=== PATIENT | male | born 1990 | race Caucasian/White ===

== ENCOUNTER 2017-08-11 23:46 | Emergency (ER) | payer MEDICAID ==
[2017-08-11 23:54] VITALS: O2SAT 94
--- NOTE | 2017-08-12 00:09 | EDPHY ---
H & P Stated Complaint: seen at walk in clinic for fever, nausea, not improved with meds HPI/ROS: HPI CHIEF COMPLAINT: Fever, nausea HISTORY OF PRESENT ILLNESS: This patient very pleasant 27-year-old female to male, presents emergency room with fever generalized fatigue, sore throat, in skin hypersensitivity. Patient reports to me that he was seen at he initially got sick on Thursday. Gilbert rather ill with generalized weakness. On Thursday developed a fever. T-max 103degrees. He went to urgent care thinking that he had strep throat however never had a strep test done. He did provide a urine sample was diagnosed with a urinary tract infection. He is currently on Bactrim. Does tell me the dysuria is gotten better. He now presents emergency room as he has had persistent fever T-max 101degrees at home. Skin sensitivity and nausea. He has not any vomiting. Denies diarrhea. He states he has decreased appetite. No rash. Denies headache or neck pain or stiff neck. Still complains of sore throat. 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 Taking testosterone. Past Surgical History: Chest augmentation with breast reduction Social History: Denies daily use drugs alcohol tobacco products. [employer]. Family History: Noncontributory ROS REVIEW OF SYSTEMS: A comprehensive 10 point review of systems is otherwise negative aside from elements mentioned in the history of present illness. Exam Constitutional appears well nontoxic, triage nursing summary reviewed, vital signs reviewed, awake/alert. Eyes normal conjunctivae and sclera, EOMI, PERRLA. HENT posterior pharynx erythematous is no significant exudate, moist mucus membranes, no epistaxis, neck supple/ no meningismus, no raccoon eyes. Respiratory clear to auscultation bilaterally, normal breath sounds, no respiratory distress, no wheezing. Cardiovascular rate normal, regular rhythm, no murmur, no edema, distal pulses normal. Gastrointestinal soft, non-tender, no rebound, no guarding, normal bowel sounds, no distension, no pulsatile mass. Genitourinary no CVA tenderness. Musculoskeletal no midline vertebral tenderness, full range of motion, no calf swelling, no tenderness of extremities, no meningismus, good pulses, neurovascularly intact. Skin pink, warm, & dry, no rash, skin atraumatic. Neurologic awake, alert and oriented x 3, AAOx3, moves all 4 extremities equally, motor intact, sensory intact, CN II-XII intact, normal cerebellar, normal vision, normal speech. Psychiatric normal mood/affect. Heme/Lymph/Immune no lymphadenopathy. Differential Diagnosis: Includes but is not limited to in a particular order sepsis, urinary tract infection, pyelonephritis, bacteremia, dehydration, electrolyte disturbance, mono, strep pharyngitis, influenza. Medical Decision Making: Plan for this patient IV establishment IV fluid bolus , IV Phenergan for nausea, ibuprofen for pain control and fever reduction. Check blood work, blood cultures, lactic acid, rapid strep, influenza urinalysis. Re-evaluation: 235AM: I did re-evaluate this patient patient is resting comfortably no acute distress. He has not any vomiting here. He is afebrile. His workup for acute febrile illness is unremarkable specifically strep negative mono is negative. Influenza negative. Blood work is reassuring. Feels better after 2 L of fluid and ibuprofen. He would like to go home. He is on Bactrim for recent UTI. However he states that he prefers a different medication I will switch him to Keflex. He can stop the Bactrim. Patient additionally understands to return to the ER if he develops worsening symptoms high fever vomiting or not feeling well. Source: Patient - Personal History Current Tetanus/Diphtheria Vaccine: Unsure - Medical/Surgical History Hx Asthma: Yes Hx Chronic Respiratory Disease: No Hx Diabetes: No Hx Cardiac Disease: No Hx Renal Disease: No Hx Cirrhosis: No Hx Alcoholism: No Hx HIV/AIDS: No Hx Splenectomy or Spleen Trauma: No Other PMH: PSHx: trans - double mastectomy, total hysterectomy, SLAP repair R shoulder. PMHx: ulcerative colitis - Social History Smoking Status: Never smoked Constitutional: Initial Vital Signs Temperature (C) 37.9 C 08/11/17 23:50 Heart Rate 76 08/11/17 23:50 Respiratory Rate 16 08/11/17 23:50 Blood Pressure 119/90 H 08/11/17 23:50 O2 Sat (%) 94 08/11/17 23:50 O2 Delivery Mode Room Air Allergies/Adverse Reactions: No Known Allergies Allergy (Unverified 08/11/17 23:50) Home Medications: Medication Instructions Recorded Bactrim DS 08/11/17 Zofran 08/11/17 Cephalexin [Keflex] 500 mg PO Q6H #28 cap 08/12/17 Medical Decision Making - Data Points Laboratory Results: Laboratory Results 08/12/17 00:25 08/12/17 00:25 08/12/17 08/12/17 08/12/17 Unknown 01:14 01:11 WBC RBC Hgb Hct MCV MCH MCHC RDW Plt Count MPV Neut % (Auto) Lymph % (Auto) [place] % (Auto) Eos % (Auto) Baso % (Auto) Nucleat RBC Rel Count Absolute Neuts (auto) Absolute Lymphs (auto) Absolute Monos (auto) Absolute Eos (auto) Absolute Basos (auto) Absolute Nucleated RBC Immature Gran % Immature Gran # VBG Lactic Acid Sodium Potassium Chloride Carbon Dioxide Anion Gap BUN Creatinine Estimated GFR Glucose Calcium Total Bilirubin Conjugated Bilirubin Unconjugated Bilirubin AST ALT Alkaline Phosphatase Total Protein Albumin Lipase Urine Color YELLOW Urine Appearance CLEAR Urine pH 6.0 (5.0-7.5) Ur Specific Staples 1.012 (1.002-1.030) Urine Protein NEGATIVE (NEGATIVE) Urine Ketones NEGATIVE (NEGATIVE) Urine Blood NEGATIVE (NEGATIVE) Urine Nitrate NEGATIVE (NEGATIVE) Urine Bilirubin NEGATIVE (NEGATIVE) Urine Urobilinogen 2.0 EU H EU (0.2-1.0) Ur Leukocyte Esterase NEGATIVE (NEGATIVE) Urine Glucose NEGATIVE (NEGATIVE) Monoscreen Influenza A,B Rapid NEGATIVE FOR FLU (NEGATIVE) Group A Strep Screen Group A Strep DNA Pending 08/12/17 08/12/17 08/12/17 00:25 00:25 00:25 WBC RBC Hgb Hct MCV MCH MCHC RDW Plt Count MPV Neut % (Auto) Lymph % (Auto) [place] % (Auto) Eos % (Auto) Baso % (Auto) Nucleat RBC Rel Count Absolute Neuts (auto) Absolute Lymphs (auto) Absolute Monos (auto) Absolute Eos (auto) Absolute Basos (auto) Absolute Nucleated RBC Immature Gran % Immature Gran # VBG Lactic Acid Sodium 138 mEq/L mEq/L (134-144) Potassium 4.0 mEq/L mEq/L (3.5-5.2) Chloride 99 mEq/L mEq/L (97-110) Carbon Dioxide 25 mEq/l mEq/l (22-31) Anion Gap 14 mEq/L mEq/L (8-16) BUN 10 mg/dL mg/dL (7-23) Creatinine 1.0 mg/dL mg/dL (0.7-1.3) Estimated GFR > 60 Glucose 86 mg/dL mg/dL (70-100) Calcium 8.9 mg/dL mg/dL (8.5-10.4) Total Bilirubin 0.7 mg/dL mg/dL (0.1-1.4) Conjugated Bilirubin 0.4 mg/dL mg/dL (0.0-0.5) Unconjugated Bilirubin 0.3 mg/dL mg/dL (0.0-1.1) AST 38 IU/L IU/L (17-59) ALT 47 IU/L IU/L (21-72) Alkaline Phosphatase 50 IU/L IU/L (38-126) Total Protein 7.6 g/dL g/dL (6.3-8.2) Albumin 4.4 g/dL g/dL (3.5-5.0) Lipase 163 IU/L IU/L (23-300) Urine Color Urine Appearance Urine pH Ur Specific Staples Urine Protein Urine Ketones Urine Blood Urine Nitrate Urine Bilirubin Urine Urobilinogen Ur Leukocyte Esterase Urine Glucose Monoscreen NEGATIVE (NEGATIVE) Influenza A,B Rapid Group A Strep Screen NEGATIVE (NEGATIVE) Group A Strep DNA 08/12/17 08/12/17 00:25 00:25 WBC 6.47 10^3/uL 10^3/uL (3.80-9.50) RBC 5.57 10^6/uL 10^6/uL (4.40-6.38) Hgb 16.9 g/dL g/dL (13.7-17.5) Hct 48.8 % % (40.0-51.0) MCV 87.6 fL fL (81.5-99.8) MCH 30.3 pg pg (27.9-34.1) MCHC 34.6 g/dL g/dL (32.4-36.7) RDW 11.8 % % (11.5-15.2) Plt Count 172 10^3/uL 10^3/uL (150-400) MPV 9.8 fL fL (8.7-11.7) Neut % (Auto) 72.3 % % (39.3-74.2) Lymph % (Auto) 15.0 % % (15.0-45.0) [place] % (Auto) 11.7 % % (4.5-13.0) Eos % (Auto) 0.2 % L % (0.6-7.6) Baso % (Auto) 0.3 % % (0.3-1.7) Nucleat RBC Rel Count 0.0 % % (0.0-0.2) Absolute Neuts (auto) 4.68 10^3/uL 10^3/uL (1.70-6.50) Absolute Lymphs (auto) 0.97 10^3/uL L 10^3/uL (1.00-3.00) Absolute Monos (auto) 0.76 10^3/uL 10^3/uL (0.30-0.80) Absolute Eos (auto) 0.01 10^3/uL L 10^3/uL (0.03-0.40) Absolute Basos (auto) 0.02 10^3/uL 10^3/uL (0.02-0.10) Absolute Nucleated RBC 0.00 10^3/uL 10^3/uL (0-0.01) Immature Gran % 0.5 % % (0.0-1.1) Immature Gran # 0.03 10^3/uL 10^3/uL (0.00-0.10) VBG Lactic Acid 0.9 mmol/L mmol/L (0.7-2.1) Sodium Potassium Chloride Carbon Dioxide Anion Gap BUN Creatinine Estimated GFR Glucose Calcium Total Bilirubin Conjugated Bilirubin Unconjugated Bilirubin AST ALT Alkaline Phosphatase Total Protein Albumin Lipase Urine Color Urine Appearance Urine pH Ur Specific Staples Urine Protein Urine Ketones Urine Blood Urine Nitrate Urine Bilirubin Urine Urobilinogen Ur Leukocyte Esterase Urine Glucose Monoscreen Influenza A,B Rapid Group A Strep Screen Group A Strep DNA Medications Given: Discontinued Medications Sodium Chloride (Ns) 1,000 mls @ 0 mls/hr IV EDNOW ONE; Wide Open PRN Reason: Protocol Stop: 08/12/17 00:18 Last Admin: 08/12/17 00:33 Dose: 1,000 mls Sodium Chloride (Ns) 1,000 mls @ 0 mls/hr IV ONCE ONE PRN Reason: Wide Open Stop: 08/12/17 00:20 Last Admin: 08/12/17 00:36 Dose: 1,000 mls Sodium Chloride (Ns) 1,000 mls @ 0 mls/hr IV ONCE ONE PRN Reason: Wide Open Stop: 08/12/17 01:55 Last Admin: 08/12/17 01:59 Dose: 1,000 mls Ibuprofen (Motrin) 800 mg PO EDNOW ONE Stop: 08/12/17 00:23 Last Admin: 08/12/17 00:36 Dose: 800 mg Promethazine HCl (Phenergan) 6.25 mg IVP ONCE ONE Stop: 08/12/17 00:20 Last Admin: 08/12/17 00:36 Dose: 6.25 mg Departure - Departure Disposition: Home, Routine, Self-Care Clinical Impression: Viral syndrome Fever Qualifiers: Fever type: due to other condition Qualified Code(s): R50.81 - Fever presenting with conditions classified elsewhere Condition: Good Instructions: Fever in Adults (ED), Viral Syndrome (ED) Additional Instructions: 1.Drink lots of fluids stay well-hydrated. 2. Return to the emergency room if develops worsening symptoms questions concerns. 3. I would recommend alternating Tylenol Motrin every 4-6 hours. Referrals: SONU BERNARD [Primary Care Provider] - As per Instructions Prescriptions: Cephalexin [Keflex] 500 mg PO Q6H #28 cap
[2017-08-12] MEDS ORDERED: NS 1,000 ML IV ONE ×3 (00:17→01:54)
[2017-08-12] MEDS ORDERED: PROMETHAZINE HCL 25 MG/ML INJ IVP ONE (00:19)
[2017-08-12] MEDS ORDERED: IBUPROFEN 200 MG TAB PO ONE (00:22)
[2017-08-12 00:40] LABS: % IMMATURE GRANULYOCYTES 0.5 % (0.0-1.1); ABSOLUTE IMMATURE GRANULOCYTES 0.03 10^3/uL (0.00-0.10); ADD DIFF? NO; ADD MORPH? NO; ADD SCAN? NO; ATYPICAL LYMPHOCYTE FLAG 10 (0-99); FRAGMENT RBC FLAG 0 (0-99); HEMATOCRIT 48.8 % (40.0-51.0); HEMOGLOBIN 16.9 g/dL (13.7-17.5); LEFT SHIFT FLG 0 (0-99); LIPEMIA HEMOLYSIS FLAG 90 (0-99); MEAN CELL HEMOGLOBIN 30.3 pg (27.9-34.1); MEAN CELL HEMOGLOBIN CONCENTR. 34.6 g/dL (32.4-36.7); MEAN CELL VOLUME 87.6 fL (81.5-99.8); MEAN PLATELET VOLUME 9.8 fL (8.7-11.7); PLATELET CLUMPS FLAG 0 (0-99); PLATELET COUNT 172 10^3/uL (150-400); RED BLOOD CELL COUNT 5.57 10^6/uL (4.40-6.38); RED CELL DISTRIBUTION WIDTH 11.8 % (11.5-15.2)
[2017-08-12 00:58] LABS: ALANINE AMINOTRANSFERASE 47 IU/L (21-72); ALBUMIN 4.4 g/dL (3.5-5.0); ALKALINE PHOSPHATASE 50 IU/L (38-126); ANION GAP 14 mEq/L (8-16); ASPARTATE AMINOTRANSFERASE 38 IU/L (17-59); BILIRUBIN,TOTAL 0.7 mg/dL (0.1-1.4); BILIRUBIN-CONJUGATED 0.4 mg/dL (0.0-0.5); BILIRUBIN-UNCONJUGATED 0.3 mg/dL (0.0-1.1); CALCIUM 8.9 mg/dL (8.5-10.4); CARBON DIOXIDE 25 mEq/l (22-31); CHLORIDE 99 mEq/L (97-110); GLOMERULAR FILTRATION RATE > 60; GLUCOSE 86 mg/dL (70-100); SODIUM 138 mEq/L (134-144); TOTAL PROTEIN 7.6 g/dL (6.3-8.2)
[2017-08-12 01:28] LABS: COLOR YELLOW; LEUKOCYTE ESTERASE,URINE NEGATIVE (NEGATIVE); NITRITE,URINE NEGATIVE (NEGATIVE)
[2017-08-12 02:52] VITALS: BP 100/57; PULSE 59; RESP 165; TEMP 98.1
== END 2017-08-12 02:53 | disposition home or self-care (01) ==
DX: B34.9 Viral infection, unspecified (principal); J45.909 Unspecified asthma, uncomplicated; E86.9 Volume depletion, unspecified
CPT/HCPCS: 96374; J2550